=== PATIENT | female | born 1980 | race African-American/Black ===

== ENCOUNTER 2017-04-02 19:17 | Emergency (ER) | payer OTHER ==
[2017-04-02] MEDS ORDERED: HYDROcod/ACET 5/325 Prepack 6 PO STA (20:41)
[2017-04-02] MEDS ORDERED: KETOROLAC 60 MG/2 ML VIAL IM STA (20:41)
[2017-04-02] MEDS ORDERED: CYCLOBENZAPRINE 10 MG Prepack 2 PO PRN (20:41)
--- NOTE | 2017-04-02 20:45 | ED Physician Documentation ---
History of Present Illness - Stated complaint Stated Complaint: NECK PX - Chief complaint Chief Complaint: General - History obtained from History obtained from: Patient - History of Present Illness Timing: Other (She awoke today with right sided neck pain. Worse with rotation of the neck. 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 - Present Medications Home Medications: Ambulatory Orders Medication Instructions Recorded Confirmed HYDROcod/ACETAM 5/325 [[place] 5/325] 1 - 2 ea PO Q6H PRN #20 tablet 02/03/16 Amoxicillin 500 mg PO TID #20 capsule 03/22/16 Ibuprofen [Motrin] 600 mg PO TID #20 tab 03/22/16 Ondansetron Odt [Zofran] 4 mg TL Q6H PRN #15 tablet 03/22/16 Cyclobenzaprine [Flexeril] 10 mg PO TID PRN #20 tablet 04/02/17 HYDROcod/ACETAM 5/325 [[place] 5/325] 1 - 2 ea PO Q6H PRN #15 tablet 04/02/17 - Allergies Allergies/Adverse Reactions: Allergies Allergy/AdvReac Type Severity Reaction Status Date / Time No Known Drug Allergies Allergy Verified 04/02/17 19:41 - Social History Does the pt smoke?: No Smoking Status: Never smoker Does the pt drink ETOH?: Yes Does the pt have substance abuse?: No - Immunizations Immunizations are current?: Yes - POLST Patient has POLST: No PD ED PE NORMAL - Vitals Vital signs reviewed: Yes - General General: Alert and oriented X 3, No acute distress - HEENT HEENT: Other (Tender over the right sternocleidomastoid, not in the midline, significant pain when she rotates the neck.) - Neck Neck: Supple, no meningeal sign, No bony TTP - Extremities Extremities: Other (Equal upper extremity network strategist strength, thumb extension, interossei, flexion and extension of the wrist and normal sensation throughout the arms.) - Neuro Neuro: Alert and oriented X 3, Normal speech - Psych Psych: Normal mood, Normal affect Results - Vitals Vitals: Vital Signs - 24 hr 04/02/17 19:42 Temperature 36.4 C L Heart Rate 72 Respiratory 16 Rate Blood Pressure 131/83 H O2 Saturation 100 Oxygen O2 Source Room air PD MEDICAL DECISION MAKING - ED course ED course: 37-year-old woman presents with medical torticollis of the right sternocleidomastoid which is treated with Toradol here, and prepacks of Vicodin and Flexeril since she is driving. Departure - Departure Disposition: Home, Self Care Clinical Impression: Torticollis Condition: Good Record reviewed to determine appropriate education?: Yes Instructions: Torticollis Prescriptions: Cyclobenzaprine [Flexeril] 10 mg PO TID PRN #20 tablet PRN Reason: Pain HYDROcod/ACETAM 5/325 [[place] 5/325] 1 - 2 ea PO Q6H PRN #15 tablet PRN Reason: Pain Comments: Call your doctor to arrange a follow-up appointment, make the next available appointment. In the interim, return anytime if worse or if new symptoms develop. Do not drink or drive while taking narcotic pain medication. Note that many narcotic pain relievers also contain Tylenol/acetaminophen. Please ensure that your total dose of acetaminophen from all sources does not exceed 3 g (3000 mg) per day. You may get constipated while on this medication. Take a stool softener such as Colace twice a day while you are on it. Also add an [id number] laxative such as senna or MiraLAX on any day that you do not have a bowel movement. If you received a narcotic pain medication or sedative while in the emergency department, do not drive for the next 24 hours. Your blood pressure was elevated today on check into the emergency department. This does not mean that you have hypertension, it is a common phenomenon to come to the emergency department and have elevated blood pressure. I recommend that you see your primary care physician within the week to have it rechecked when you are feeling better. Forms: Activity restrictions
[2017-04-02 21:32] VITALS: BP 129/97
== END 2017-04-02 21:29 | disposition home or self-care (01) ==
LOC: ED 19:17
DX: M43.6 Torticollis (principal); R03.0 Elevated blood-pressure reading, without diagnosis of hypertension
CPT/HCPCS: 96372; 99283

== ENCOUNTER 2017-08-17 20:14 | Emergency (ER) | payer OTHER ==
--- NOTE | 2017-08-17 20:28 | ED Physician Documentation ---
PD HPI NVD - Stated complaint Stated Complaint: N/V/D - Chief complaint Chief Complaint: Abd Pain - History obtained from History obtained from: Patient - History of Present Illness Timing - onset: Yesterday (yesterday morning) Timing - details: Gradual onset Pain level max: 0 Pain level now: 0 Associated symptoms: No: Fever, Abdominal pain Improved by: Other (no ameliorating factors) Worsened by: Eating Similar symptoms before: Has not had sx before Recently seen: Not recently seen - Additonal information Additional information: gradual onset nausea, vomiting, and diarrhea since yesterday morning. Denies any pain including abdominal pain. Has been unable to tolerate PO this afternoon and evening including sips of liquids. Review of Systems Constitutional: denies: Fever, Chills, Sweats GI: reports: Nausea, Vomiting. denies: Abdominal Pain, Diarrhea : reports: Hysterectomy. 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 - Present Medications Home Medications: Ambulatory Orders Medication Instructions Recorded Confirmed HYDROcod/ACETAM 5/325 [[place] 5/325] 1 - 2 ea PO Q6H PRN #20 tablet 02/03/16 Amoxicillin 500 mg PO TID #20 capsule 03/22/16 Ibuprofen [Motrin] 600 mg PO TID #20 tab 03/22/16 Ondansetron Odt [Zofran] 4 mg TL Q6H PRN #15 tablet 03/22/16 Cyclobenzaprine [Flexeril] 10 mg PO TID PRN #20 tablet 04/02/17 HYDROcod/ACETAM 5/325 [[place] 5/325] 1 - 2 ea PO Q6H PRN #15 tablet 04/02/17 Diphenoxylate/Atropine [Lomotil] 1 each PO QID PRN #10 tablet 08/17/17 Ondansetron Odt [Zofran] 4 mg TL Q6H PRN #14 tablet 08/17/17 - Allergies Allergies/Adverse Reactions: Allergies Allergy/AdvReac Type Severity Reaction Status Date / Time No Known Drug Allergies Allergy Verified 08/17/17 20:21 - Social History Does the pt smoke?: No Smoking Status: Never smoker Does the pt drink ETOH?: Yes Does the pt have substance abuse?: No - Immunizations Immunizations are current?: Yes - POLST Patient has POLST: No PD ED PE NORMAL - Vitals Vital signs reviewed: Yes - General General: Alert and oriented X 3, No acute distress, Well developed/nourished - HEENT HEENT: Other (tacky/pasty mucous membranes) - Cardiac Cardiac: RRR, No murmur - Respiratory Respiratory: No respiratory distress, Clear bilaterally - Abdomen Abdomen: Normal bowel sounds, Soft, Non tender, Non distended - Derm Derm: Normal color, Warm and dry Results - Vitals Vitals: Vital Signs - 24 hr 08/17/17 08/17/17 20:19 22:29 Temperature 36.0 C L Heart Rate 88 63 Respiratory 16 17 Rate Blood Pressure 130/85 H 115/87 H O2 Saturation 100 100 Oxygen O2 Source Room air - Labs Labs: Laboratory Tests 08/17/17 08/17/17 20:45 20:45 WBC 9.7 RBC 4.20 Hgb 11.2 L Hct 34.8 L MCV 83.0 MCH 26.6 L MCHC 32.1 RDW 13.1 Plt Count 330 MPV 7.8 L Neut # 5.1 Lymph # 3.6 H [place] # 0.7 Eos # 0.2 Baso # 0.2 H Absolute Nucleated RBC 0.01 Nucleated RBC % 0.1 Sodium 136 Potassium 4.1 Chloride 102 Carbon Dioxide 28 Anion Gap 6.0 BUN 12 Creatinine 0.7 Estimated GFR (MDRD) 115 Glucose 83 Calcium 9.7 Total Bilirubin 0.6 AST 19 ALT 20 Alkaline Phosphatase 70 Total Protein 8.1 Albumin 4.0 Globulin 4.1 Albumin/Globulin Ratio 1.0 Lipase 22 PD MEDICAL DECISION MAKING - ED course Complexity details: reviewed results, re-evaluated patient, considered differential, d/w patient Departure - Departure Disposition: 01 Home, Self Care Clinical Impression: Vomiting, Diarrhea Condition: Good Instructions: ED Vomiting Diarrhea Nonspecific Ad Follow-Up: Craig Lemus ARNP [Primary Care Provider] - Prescriptions: Diphenoxylate/Atropine [Lomotil] 1 each PO QID PRN #10 tablet PRN Reason: Diarrhea Ondansetron Odt [Zofran] 4 mg TL Q6H PRN #14 tablet PRN Reason: Nausea / Vomiting Forms: Activity restrictions Discharge Date/Time: 08/17/17 22:50
[2017-08-17] MEDS ORDERED: ONDANSETRON 4 MG/2 ML VIAL IVP STA ×2 (20:39→22:09)
[2017-08-17] MEDS ORDERED: SODIUM CHLORIDE 0.9% 1,000 ML IV STA (20:39)
[2017-08-17 20:57] LABS: BASOPHILS # (AUTO) 0.2 10^3/uL (0.0-0.1); EOSINOPHILS # (AUTO) 0.2 10^3/uL (0.0-0.7); EOSINOPHILS % (AUTO) 2.1 %; HGB - HEMOGLOBIN 11.2 g/dL (12.0-16.0); LYMPHOCYTES # (AUTO) 3.6 10^3/uL (1.5-3.5); LYMPHOCYTES % (AUTO) 36.8 %; MEAN CORPUSCULAR HEMOGLOBIN 26.6 pg (27.0-31.0); MEAN CORPUSCULAR HGB CONC 32.1 g/dL (32.0-36.0); MEAN PLATELET VOLUME 7.8 fL (7.9-10.8); MONOCYTES # (AUTO) 0.7 10^3/uL (0.0-1.0); NEUTROPHILS # (AUTO) 5.1 10^3/uL (1.5-6.6); NEUTROPHILS % (AUTO) 52.1 %; PLT - PLATELET COUNT 330 10^3/uL (130-450); RED CELL DISTRIBUTION WIDTH 13.1 % (12.0-15.0); WHITE BLOOD COUNT 9.7 x10^3/uL (4.8-10.8)
[2017-08-17 21:08] LABS: BILIRUBIN,TOTAL 0.6 mg/dL (0.2-1.0); CALCIUM 9.7 mg/dL (8.5-10.3); CREATININE 0.7 mg/dL (0.4-1.0); TOTAL PROTEIN 8.1 g/dL (6.7-8.2)
[2017-08-17] MEDS ORDERED: DIPHENOX/ATROPINE 2.5/0.025 MG TABLET PO STA (22:09)
[2017-08-17 22:30] VITALS: BP 115/87
[2017-08-17] MEDS ORDERED: ONDANSETRON ODT 4 MG Prepack 2 TL PRN (22:32)
== END 2017-08-17 22:50 | disposition home or self-care (01) ==
LOC: ED 20:14
DX: R11.2 Nausea with vomiting, unspecified (principal); R19.7 Diarrhea, unspecified
CPT/HCPCS: 36415; 80053; 83690; 85025; 96361; 96374; 96376; 99283; A9270